=== PATIENT | male | born 1980 | race Caucasian/White ===

== ENCOUNTER 2017-06-19 15:26 | Emergency (ER) | payer BC, OTHER ==
[2017-06-19 15:43] VITALS: BP 138/97
--- NOTE | 2017-06-19 16:10 | UC ---
Skin Complaint HPI - HPI Summary HPI Summary: Patient presents to the with CC of tick bite x 2 weeks ago. The tick was not engorged. He did not have any rash until yesterday when he noticed a large erythematous bulls eye rash around the skin lesion. Notes to some diffuse knee and elbow pains - worse on the right. Fever and chills with feeling "flu-like" for the last 2 days which has now improved. Denies other concerns. Only arrives d/t new onset rash. - History of Current Complaint Hx Obtained From: Patient Onset/Duration: Sudden Onset Skin Exposure Onset/Duration: Hours Ago Timing: Constant Onset Severity: Mild Current Severity: Mild Pain Intensity: 2 Pain Scale Used: 0-10 Numeric Aggravating Factor(s): Nothing Alleviating Factor(s): Nothing Associated Signs & Symptoms: Positive: Tenderness Related History: Possible Reaction to: Insect <Divine Zurita - Last Filed: 06/19/17 16:04> <Jayne Lawson - Last Filed: 06/19/17 16:30> - History of Current Complaint Chief Complaint: UCSkin Time Seen by Provider: 06/19/17 15:50 Stated Complaint: TICK BITE - Allergy/Home Medications Allergies/Adverse Reactions: Allergies Allergy/AdvReac Type Severity Reaction Status Date / Time No Known Allergies Allergy Verified 08/05/15 12:38 Review of Systems Constitutional: Negative Skin: Other - small red lesion to the right lower lateral leg just proximal to the knee with large erytehmatous slight warm bullseye lesion with central clearing Respiratory: Negative Cardiovascular: Negative Motor: Negative Neurovascular: Negative Musculoskeletal: Arthralgia Neurological: Headache Psychological: Negative Is Patient Immunocompromised?: No All Other Systems Reviewed And Are Negative: Yes <Divine Zurita - Last Filed: 06/19/17 16:04> PMH/Surg Hx/FS Hx/Imm Hx Previously Healthy: Yes - Surgical History Surgical History: None - Social History Occupation: Employed Full-time Lives: With Family Alcohol Use: Weekly Alcohol Amount: One dirnk daily Substance Use Type: None Smoking Status (MU): Light Every Day Tobacco Smoker Type: Cigarettes Amount Used/How Often: 1/2 PPD Length of Time of Smoking/Using Tobacco: 10 years Have You Smoked in the Last Year: Yes <Divine Zurita - Last Filed: 06/19/17 16:04> Physical Exam Triage Information Reviewed: Yes Appearance: Well-Appearing, Well-Nourished Vital Signs: Initial Vital Signs Temp 100.0 F 06/19/17 15:32 Pulse 88 06/19/17 15:32 Resp 16 06/19/17 15:32 BP 138/97 06/19/17 15:32 Pulse Ox 100 06/19/17 15:32 Vital Signs Reviewed: Yes Eye Exam: Normal Eyes: Positive: Conjunctiva Clear Neck exam: Normal Neck: Positive: Supple, Nontender, No Lymphadenopathy Respiratory Exam: Normal Respiratory: Positive: Chest non-tender, Lungs clear Cardiovascular Exam: Normal Cardiovascular: Positive: RRR Musculoskeletal: Positive: Strength Intact, ROM Intact Neurological Exam: Normal Neurological: Positive: Alert Psychological: Positive: Normal Response To Family, Age Appropriate Behavior Skin: Positive: significant lesion(s) <Divine Zurita - Last Filed: 06/19/17 16:04> Vital Signs: Initial Vital Signs Temp 100.0 F 06/19/17 15:32 Pulse 88 06/19/17 15:32 Resp 16 06/19/17 15:32 BP 138/97 06/19/17 15:32 Pulse Ox 100 06/19/17 15:32 <Jayne Lawson - Last Filed: 06/19/17 16:30> Course/Dx - Course Course Of Treatment: Patient evaluated for small red lesion to the right lower lateral leg just proximal to the knee with large erytehmatous slight warm bullseye lesion with central clearing. Tick bite 2 weeks prior. Possibly another tick bite recently, but unsure. Patient is given information for follow with Dr. Huang and 2 weeks doxycycline for UTD recommendations. He is to follow up [facility] PCP as well for lyme check. He agrees. - Differential Diagnoses - Skin Complaint Differential Diagnoses: Tick Born Illness - Diagnoses Provider Diagnoses: tick bite <Divine Zurita - Last Filed: 06/19/17 16:04> Discharge <Divine Zurita - Last Filed: 06/19/17 16:04> <Jayne Lawson - Last Filed: 06/19/17 16:30> - Discharge Plan Condition: Stable Disposition: HOME Prescriptions: DOXYcycline CAP(*) [DOXYcycline 100MG CAP(*)] 100 mg PO BID #28 cap MDD 2 Patient Education Materials: Lyme Disease (ED), Tick Bite (ED) Referrals: Brooke DOBBINS,Idris Beth [Medical Doctor] - No Primary Care Phys,NOPCP [Primary Care Provider] - Additional Instructions: Doxycycline - twice daily for 14 days. Follow up with your PCP for a lyme test in 3-4 weeks If symptoms return - please come back to or make appt with Dr. Huang Tick Bite: Approach to prophylaxis : According to the Infectious Diseases Society of [place] (IDSA) guidelines that recommend antibiotic prophylaxis only in patients who meet all of the following criteria: 1. Attached tick identified as an adult or nymphal I. scapularis tick (deer tick). 2. Tick is estimated to have been attached for 36 hours (by degree of engorgement or time of exposure). 3. Prophylaxis is begun within 72 hours of tick removal. Local rate of infection of ticks with B. burgdorferi is 20 percent if attached for over 48 hours (these rates of infection have been shown to occur in parts of [place], parts of the [facility], and parts of [place] and [place]). If you experience a tick and time of attachment is believed to be less than 36 hours, you may remove the tick with head intact and no need for prophylaxis. If over 36 hours, please come into UC. Prophylactic doxycycline is not recommended for ticks attached less than 36 hours. Based on ISDA guidelines, will treat for 2 weeks. Instructions given on dispense of medication and patient is to follow up with PCP for any worsening symptoms and to obtain labwork if she chooses. No lab work obtained today d/t early findings. Attestation Statement User Type: Provider - I was available for consult. This patient was seen by the CHERYLE. The patient was not presented to, seen by, or examined by me. -Akanksha <Jayne Lawson - Last Filed: 06/19/17 16:30>
== END 2017-06-19 16:11 | disposition home or self-care (01) ==
LOC: UCEAST 15:26
DX: S80.861A Insect bite (nonvenomous), right lower leg, initial encounter (principal); W57.XXXA Bitten or stung by nonvenomous insect and other nonvenomous arthropods, initial encounter; Y92.9 Unspecified place or not applicable; F17.210 Nicotine dependence, cigarettes, uncomplicated
CPT/HCPCS: 99212; G0463

== ENCOUNTER 2019-03-15 11:30 | Emergency (ER) | payer BC ==
[2019-03-15 12:02] VITALS: BP 131/81
--- NOTE | 2019-03-15 12:12 | UC ---
Lower Extremity/Ankle HPI - HPI Summary HPI Summary: 38 yo male presents with left 5th toe pain. He tells me that last night he turned his bedroom lights off to go to bed and stubbed his left 5th digit on the doorframe. Has had pain in this area with some bruising and swelling since that time. Has not elevated or iced the area. He is ambulatory without assistance. - History of Current Complaint Chief Complaint: UCLowerExtremity Stated Complaint: FOOT COMPLAINT Time Seen by Provider: 03/15/19 12:12 Hx Obtained From: Patient Onset/Duration: Sudden Onset Severity Initially: Severe Severity Currently: Severe Pain Intensity: 8 Pain Scale Used: 0-10 Numeric - Allergies/Home Medications Allergies/Adverse Reactions: Allergies Allergy/AdvReac Type Severity Reaction Status Date / Time No Known Allergies Allergy Verified 03/15/19 12:02 Home Medications: Home Medications NK [No Home Medications Reported] 03/15/19 [History Confirmed 03/15/19] PMH/Surg Hx/FS Hx/Imm Hx - Additional Past Medical History Additional PMH: None - Surgical History Surgical History: None - Family History Known Family History: Positive: Non-Contributory - Social History Occupation: Employed Full-time Lives: With Family Alcohol Use: Occasionally Alcohol Amount: One dirnk daily Substance Use Type: None Smoking Status (MU): Current Some Day Smoker Type: Cigarettes Amount Used/How Often: 1/2 PPD Length of Time of Smoking/Using Tobacco: 10 years Have You Smoked in the Last Year: Yes Review of Systems All Other Systems Reviewed And Are Negative: Yes Constitutional: Positive: Negative Skin: Positive: Negative Respiratory: Positive: Negative Cardiovascular: Positive: Negative Neurovascular: Positive: Negative Musculoskeletal: Positive: Other: - Left 5th toe pain Neurological: Positive: Negative Psychological: Positive: Negative Physical Exam - Summary Physical Exam Summary: GENERAL: NAD. WDWN. No pain distress. SKIN: No rashes, sores, lesions, or open wounds. CHEST: No accessory muscle use. Breathing comfortably and in no distress. CV: Pulses intact PT and DP. Cap refill <2seconds MSK: LEFT FOOT: 5th digit with moderate edema and overlying mild ecchymosis at proximal phalanx. TTP here. Flexion, but causes pain. No MT pain. NEURO: Alert. Sensations intact and symmetric B/L LEs PSYCH: Age appropriate behavior. Triage Information Reviewed: Yes Vital Signs: Initial Vital Signs Temp 98.8 F 03/15/19 11:59 Pulse 100 03/15/19 11:59 Resp 18 03/15/19 11:59 BP 131/81 03/15/19 11:59 Pulse Ox 100 03/15/19 11:59 Vital Signs Reviewed: Yes Lower Extremity Course/Dx - Course Course Of Treatment: XR: IMPRESSION: OBLIQUE SLIGHTLY DISPLACED FRACTURE OF THE PROXIMAL PHALANX. Discussed results with pt. Toe was dylan taped to 4th digit and pt was provided a post-op shoe to use for discomfort. Advised to RICE and take tylenol/ ibuprofen for discomfort. Advised to f/u with Orthopedics next week for a recheck given the displacement. - Differential Dx/Diagnosis Provider Diagnosis: Fracture of fifth toe, left, closed Discharge - Sign-Out/Discharge Documenting (check all that apply): Patient Departure All imaging exams completed and their final reports reviewed: Yes - Discharge Plan Condition: Stable Disposition: HOME Patient Education Materials: Toe Fracture (ED) Referrals: No Primary Care Phys,NOPCP [Primary Care Provider] - Abiodun Mayen MD [Medical Doctor] - 1 Week Additional Instructions: If you develop a fever, shortness of breath, chest pain, new or worsening symptoms - please call your PCP or go to the ED immediately. 1) Rest, Ice, and elevate your foot intermittently throughout the day to decrease pain and swelling 2) Use the post op shoe for comfort and keep the toe dylan taped as much as possible 3) May take tylenol or ibuprofen as directed for discomfort 4) I recommend that you schedule an appointment with Orthopedics next week for a recheck of your broken toe. - Billing Disposition and Condition Condition: STABLE Disposition: Home - Attestation Statements Provider Attestation: I was available for consult. This patient was seen by the CHERYLE. The patient was not presented to, seen by, or examined by me. -Akanksha
== END 2019-03-15 12:49 | disposition home or self-care (01) ==
LOC: UCEAST 11:30
DX: S92.512A Displaced fracture of proximal phalanx of left lesser toe(s), initial encounter for closed fracture (principal); W22.09XA Striking against other stationary object, initial encounter; Y93.01 Activity, walking, marching and hiking; Y92.003 Bedroom of unspecified non-institutional (private) residence as the place of occurrence of the external cause; F17.210 Nicotine dependence, cigarettes, uncomplicated
CPT/HCPCS: 99211; G0463